=== PATIENT | female | born 1995 | race Caucasian/White ===

== ENCOUNTER 2018-08-10 05:56 | Inpatient (IN) | payer OTHER ==
[~2018-08-10] VITALS: Ht 152.4 cm; Wt 57.6 kg
[~2018-08-10 05:56] MED LIST: IBUP-2070 PO; PREN1TAB80 PO
[2018-08-10] MEDS ORDERED: RINGERS SOLUTION,LACTATED 1,000 ML IV ONE ×2 (05:59→10:11)
[2018-08-10] MEDS ORDERED: CITRIC ACID/SODIUM CITRATE 30 ML SOLUTION UDCUP PO ONE (06:00)
[2018-08-10] MEDS ORDERED: METOCLOPRAMIDE HCL 5 MG/ML 2 ML VIAL IVP ONE (06:00)
[2018-08-10 06:37] LABS: EOSINOPHILS % (AUTO) 6.7 % (1.0-6.0); HEMATOCRIT 34.2 % (36-46); HEMOGLOBIN 11.6 g/dL (12.0-16.0); LYMPHOCYTES # (AUTO) 2.8 K/uL (1.0-4.8); LYMPHOCYTES % (AUTO) 25.8 % (22.0-44.0); MEAN CORPUSCULAR HEMOGLOBIN 25.5 pg (26.0-34.0); MEAN CORPUSCULAR HGB CONC 33.9 G/dL (31.0-37.0); MEAN CORPUSCULAR VOLUME 75 fL (80-100); MONOCYTES # (AUTO) 1.1 K/uL (0.1-1.0); MONOCYTES % (AUTO) 10.3 % (2.0-9.0); NEUTROPHILS # (AUTO) 6.2 K/uL (1.8-7.7); NEUTROPHILS % (AUTO) 56.2 % (40.0-70.0); PLATELET COUNT (AUTO) 229 K/uL (150-450); RED BLOOD CELL COUNT(AUTO) 4.54 MIL/uL (4.00-5.20); RED CELL DISTRIBUTION WIDTH 15.1 % (11.5-14.5)
[2018-08-10] MEDS ORDERED: GUM MASTIC/STORAX/MSAL/ALCOHOL LIQUID 0.67 ML VIAL TP ONE (07:44)
[2018-08-10] MEDS ORDERED: MORPHINE SULFATE/PF 1 MG/ML 10 ML AMP ONE (07:49)
[2018-08-10] MEDS ORDERED: MIDAZOLAM HCL 2 MG/2 ML VIAL ONE (07:49)
[2018-08-10] MEDS ORDERED: FentaNYL CITRATE-PF 100 MCG/2 ML VIAL ONE (07:49)
[2018-08-10] MEDS ORDERED: BUPIVACAINE HCL/DEX-WATER/PF 0.75% 2 ML AMP ONE (07:50)
[2018-08-10] MEDS ORDERED: DEXAMETHASONE SOD PHOS 4 MG/ML VIAL ONE (07:50)
[2018-08-10] MEDS ORDERED: KETOROLAC TROMETHAMINE 30 MG/ML VIAL ONE (07:50)
[2018-08-10] MEDS ORDERED: ONDANSETRON HCL 4 MG/2 ML VIAL ONE (07:50)
[2018-08-10] MEDS ORDERED: DiphenhydrAMINE HCL 50 MG/ML VIAL IVP PRN (08:45)
[2018-08-10] MEDS ORDERED: OxyCODONE HCL/ACETAMINOPHEN 5-325 MG TABLET PO PRN (08:45)
[2018-08-10] MEDS ORDERED: NALOXONE HCL 0.4 MG/ML VIAL IVP PRN (08:45)
[2018-08-10] MEDS ORDERED: ACETAMINOPHEN 1000 MG/ISO-OSM 100 ML IV ONE ×2 (08:45→09:35)
[2018-08-10] MEDS ORDERED: FentaNYL CITRATE-PF 100 MCG/2 ML VIAL IVP PRN ×2 (08:45)
[2018-08-10] MEDS ORDERED: MEPERIDINE-PF 25 MG/ML VIAL IVP PRN (08:45)
[2018-08-10] MEDS ORDERED: HYDROmorphone 2 MG/ML SYRINGE IVP PRN (08:45)
[2018-08-10] MEDS ORDERED: ONDANSETRON HCL 4 MG/2 ML VIAL IVP PRN (08:45)
[2018-08-10] MEDS ORDERED: LANOLIN 7 GM OINTMENT TP PRN (09:15)
[2018-08-10] MEDS ORDERED: OXYTOCIN 10 UNITS/ML VIAL IM ONE (12:00)
[2018-08-10] MEDS ORDERED: EPHEDrine SULFATE 50 MG/ML VIAL IVP ONE (12:00)
[2018-08-10] MEDS: KETOROLAC TROMETHAMINE 30 MG/ML VIAL IVP SCH ×2 (12:07→18:20)
[2018-08-10] MEDS: DEXTROSE 5%-0.45% SODIUM CHL 1,000 ML IV SCH (18:19)
[2018-08-10] MEDS ORDERED: OXYGEN THERAPY IH SCH ×2 (20:00)
[2018-08-11] MEDS: KETOROLAC TROMETHAMINE 30 MG/ML VIAL IVP SCH ×2 (01:09→07:10)
[2018-08-11] MEDS: DEXTROSE 5%-0.45% SODIUM CHL 1,000 ML IV SCH ×2 (02:31→06:44)
[2018-08-11] MEDS: MAGNESIUM HYDROXIDE SUSPENSION 30 ML UDCUP PO SCH (09:50)
[2018-08-11] MEDS: IBUPROFEN 800 MG TABLET PO SCH ×2 (13:36→19:51)
[2018-08-11] MEDS: ACETAMINOPHEN/CODEINE 300-30 MG TABLET PO PRN (21:00)
[2018-08-12] MEDS: IBUPROFEN 800 MG TABLET PO SCH ×4 (03:08→22:13)
[2018-08-12] MEDS: ACETAMINOPHEN/CODEINE 300-30 MG TABLET PO PRN ×3 (07:16→19:49)
[2018-08-12] MEDS: MAGNESIUM HYDROXIDE SUSPENSION 30 ML UDCUP PO SCH ×2 (09:42→19:49)
[2018-08-13] MEDS: IBUPROFEN 800 MG TABLET PO SCH (04:20)
[2018-08-13] MEDS ORDERED: IBUP-2071 PO (08:09)
[2018-08-13] MEDS: ACETAMINOPHEN/CODEINE 300-30 MG TABLET PO PRN (09:29)
== END 2018-08-13 09:30 | disposition home or self-care (01) | DRG 788 ==
LOC: 4S 05:56 → PREOBSVTOIN 08-21 06:02
PROVIDERS: ADMIT Obstetrics & Gynecology; ATTEND Obstetrics & Gynecology
PROC: 10D00Z1 Extraction of Products of Conception, Low, Open Approach (ICD-10-PCS; principal; 2018-08-10)
DX: O76 Abnormality in fetal heart rate and rhythm complicating labor and delivery (principal); Z3A.39 39 weeks gestation of pregnancy; Z37.0 Single live birth
CPT/HCPCS: 86850; 86900; 86901; 87081; J0131; J1100; J1885; J2250; J2405; J2590; J2765; J3010; J3490; J7120